=== PATIENT | female | born 1995 | race Two or more races ===

== ENCOUNTER 2017-05-26 22:06 | Emergency (ER) | payer BC ==
[2017-05-26 22:15] VITALS: BP 115/85; PULSE 79; RESP 18; TEMP 97.7; O2SAT 97
[2017-05-26] MEDS ORDERED: ONDANSETRON 4MG PREPACK#2 BTL TAKEHOME ONE (22:33)
--- NOTE | 2017-05-26 22:35 | EDPHY ---
H & P Stated Complaint: fall on ice hit head neuro ok Time Seen by Provider: 05/26/17 22:33 HPI/ROS: HPI: This is a 21-year-old female who presents with Chief Complaint: fall on ice hit head neuro ok Location: Back of head Quality: Injury Duration: 2-3 hr prior to arrival Signs and Symptoms: No LOC, no neck pain No bleeding, no radiation, no numbness , no weakness, no tingling, no incontinence, no decreased range of motion, + swelling, + pain Timing: Acute Severity: Mild Context: Patient is a local [employer] student, was playing [employer] ball, when she crashed into her opponent. She lost her balance and fell directly backwards onto the ice hitting her head. She denies LOC/headache/neck pain. She felt a little dizzy at 1st but quickly resolved after a few seconds. She is ambulatory on her own without assistance. She denies any slowed mentation, nausea, vomiting, visual changes. She drove herself to the emergency room. She does have a history of mild concussions in the past playing soccer. She is concerned as she has final exams this week. She has tried no xnow-hli-qijsmuy medications for the pain. She did apply ice for approximately 20 min to the back of her head with relief. She denies amnesia. She feels like she is at her baseline. She reports that she has had concussions in the past and she feels better this time than before. Modifying Factors: Ice application Comment: ROS: see HPI Constitutional: No fever, no chills, no weight loss Eyes: No blurred vision Respiratory: No shortness of breath, no cough Cardiovascular: No chest pain Gastrointestinal: No nausea, no vomiting no diarrhea Genitourinary: No dysuria Extremities: No myalgias Neurologic: No weakness, no numbness Skin: No rashes Hematologic: No bruising, no bleeding MEDICAL/SURGICAL/SOCIAL HISTORY: Medical history: Generally healthy. Does not take any regular medications. Surgical history: Denies Social history: Local [employer] student CONSTITUTIONAL: Pleasant talkative, appropriate, young adult female, awake and alert, no obvious distress HEENT: Atraumatic and normocephalic. NECK: supple, no midline tenderness, flexion 45 degrees, extension 45 degrees, right and left lateral flexion 45 degrees. No meningismus. Cardiovascular: Normal S1/S2, regular rate, regular rhythm, without murmur rub or gallop. PULMONARY/CHEST: Symmetrical and nontender. no crepitus. Clear to auscultation bilaterally. Good air movement. No accessory muscle usage. ABDOMEN: Soft, nondistended, nontender, no ecchymosis. PELVIC: no pain with rocking; bilateral hips flexion 125 degrees, extension 30 degrees, with no pain internal rotation and no pain external rotation. BACK: No midline tenderness, no paraspinous spasm, deep tendon reflexes 2/2, no pain with straight leg raise EXTREMITIES: 2/2 pulses, no deformities, no clubbing, no cyanosis or edema. NEUROLOGICAL: no focal neuro deficits. GCS 15. Light touch sensation intact. Normal Romberg test. Normal kkibaj-pf-togc test. Normal cffa-ly-muyn test. Cranial nerves 2-12 grossly intact. Speech clear. Short term and fdc memory intact. SKIN: Warm and dry, no erythema. no rash. Good capillary refill. Source: Patient Exam Limitations: No limitations - Personal History LMP (Females 10-55): 8-14 Days Ago Current Tetanus/Diphtheria Vaccine: Yes Current Tetanus Diphtheria and Acellular Pertussis (TDAP): Yes - Medical/Surgical History Hx Asthma: No Hx Chronic Respiratory Disease: No Hx Diabetes: No Hx Cardiac Disease: No Hx Renal Disease: No Hx Cirrhosis: No Hx Alcoholism: No Hx HIV/AIDS: No Hx Splenectomy or Spleen Trauma: No - Social History Smoking Status: Never smoked Constitutional: Initial Vital Signs Temperature (C) 36.5 C 05/26/17 22:11 Heart Rate 79 05/26/17 22:11 Respiratory Rate 18 05/26/17 22:11 Blood Pressure 115/85 H 05/26/17 22:11 O2 Sat (%) 97 05/26/17 22:11 O2 Delivery Mode Room Air Allergies/Adverse Reactions: No Known Allergies Allergy (Unverified 05/26/17 22:11) Home Medications: Medication Instructions Recorded NK [No Known Home Meds] 05/26/17 Medical Decision Making ED Course/Re-evaluation: GCS 15. No neurological deficits. Turkmen CT rule= 0; it is recommend that CT for head trauma is unnecessary. Patient will be observed. Has roommates that can watch over her the next 24 hr. She is well aware of the signs and symptoms of concussion. School note provided. Given prepack of Zofran. Differential Diagnosis: Head injury including but not limited to concussion, skull fracture, intraparenchymal contusion, subarachnoid, subdural and epidural hematoma. - Data Points Medications Given: Discontinued Medications Ondansetron HCl (Zofran Odt 4 Mg Prepack#2) 1 btl TAKEHOME EDNOW ONE Stop: 05/26/17 22:34 Last Admin: 05/26/17 22:40 Dose: 1 btl Departure - Departure Disposition: Home, Routine, Self-Care Clinical Impression: Head injury, acute, without loss of consciousness Qualifiers: Encounter type: initial encounter Qualified Code(s): S09.90XA - Unspecified injury of head, initial encounter Condition: Good Instructions: Ondansetron (By mouth, Into the mouth), Concussion (ED), Head Injury (ED) Additional Instructions: Take Tylenol and/or ibuprofen as needed for headache. Limit use of alcohol and/or drugs and do not return to physical or contact activities until you return to your baseline. Monitor for signs and symptoms of concussion. Follow-up with primary care provider in 1 week for repeat evaluation. If at any time you have worsening nausea, vomiting, dizziness, altered mentation ; please return to the emergency room immediately for evaluation. Referrals: HADI,UNKNOWN [Other] - As per Instructions Stand Alone Forms: School Excuse
== END 2017-05-26 22:58 | disposition home or self-care (01) ==
DX: S09.90XA Unspecified injury of head, initial encounter (principal); W03.XXXA Other fall on same level due to collision with another person, initial encounter; Y99.8 Other external cause status; Y93.89 Activity, other specified